=== PATIENT | female | born 1990 | race Caucasian/White ===

== ENCOUNTER → 2017-10-20 16:08 | Outpatient (CLI) | payer MEDICAID, SELFPAY ==
[2017-10-26 16:58] LABS: HPV Reflexed? NOT INDICATED
== END ==
PROVIDERS: Visit Provider Obstetrics & Gynecology
DX: Z12.72 Encounter for screening for malignant neoplasm of vagina (principal); Z12.4 Encounter for screening for malignant neoplasm of cervix
CPT/HCPCS: 88175; G0145

== ENCOUNTER → 2017-10-28 17:39 | Outpatient (CLI) | payer MEDICAID, SELFPAY ==
--- NOTE | 2017-10-28 | IMM_PTH ---
PATIENT: ESA EAVNGELISTA LOC: [facility] U#:[id number] AGE/SX: 34/F ROOM: RE10/28/[address]: Dr. Diogo Garcia MD : 1990 BED: DIS: SPEC #: [id number] RECD: 10/30/17 10:58 STATUS: UMA REQ #: [id number] GABRIELA: 10/28/17 00:[address]: Diogo Garcia DEPT: IMMUNOHISTOCHEMISTRY RECD BY: Lucero Blue ENTERED: 10/30/17 10:59 SP TYPE: IMMUNO OTHR DR: Dr. Omar Madrid DO Tissues: A - Uterine cervix, NOS B - Uterine cervix, NOS Procedures: p16 (initial) KI-67 (add) PHYSICIAN & INSTITUTION [place] [id number] SPECIMEN INFORMATION: Tissue Source: A ? Cervical biopsy 7 o?clock, B - Cervical biopsy 12 o?clock Clinical Info: TONYA Specimen Number: [id number] A & B CPT code: 51356 x2, 52225 x2 METHODOLOGY: Deparaffinized sections of prefer/formalin-fixed tissue or PAP/DQ stained slides are incubated with monoclonal/polyclonal antibodies/oligonucleotide probes. Localization is made via biotin free immunoperoxidase method. Appropriate controls are performed and reacted as expected. Results on target cell population are indicated in the following table: RESULTS: ANTIBODY / CLONE RESULT Block A P16 (E6H4) positive, focal and patchy Ki-67 (30-9) negative Block B P16 (E6H4) positive, focal and patchy Ki-67 (30-9) positive, low These tests were developed and their performance characteristics determined by [facility]. They may not have been cleared or approved by the U.S. Food and Drug Administration. The FDA has determined that such clearance or approval is not necessary. INTERPRETATION: A. Cervical biopsy 7 o?clock: Focal changes suspicious for HPV cytopathic effects. B. Cervical biopsy 12 o?clock: Focal changes consistent with HPV cytopathic effects. SJ:angelika 10/30/17
--- NOTE | 2017-10-28 | CER_PTH ---
PATIENT: ESA EVANGELISTA LOC: [facility] U#:[id number] AGE/SX: 34/F ROOM: RE10/28/[address]: Dr. Diogo Garcia MD : 1990 BED: DIS: SPEC #: [id number] RECD: 10/28/17 17:29 STATUS: UMA NESSA #: [id number] GABRIELA: 10/28/17 00:[address]: Diogo Garcia DEPT: SURGICAL PATHOLOGY RECD BY: Tu Gray ENTERED: 10/29/17 07:46 SP TYPE: CERV OTHR DR: Dr. Omar Madrid DO Tissues: A - Uterine cervix, NOS B - Uterine cervix, NOS C - Endocervical Procedures: Surgery Specimen Level IV HEADER OPERATION: Colposcopy with biopsy PRE-OP DIAGNOSIS: LGSIL TISSUE SUBMITTED: A ? Cervical biopsy 7 o?clock, B ? Cervical biopsy 12 o?clock, C - ECC MICROSCOPIC DIAGNOSIS A. Cervix, 7 o?clock, biopsy: Focal changes suspicious for HPV cytopathic effects. Chronic inflammation and squamous metaplasia. B. Cervix, 12 o?clock, biopsy: Focal changes consistent with HPV cytopathic effects. Chronic inflammation and squamous metaplasia. C. ECC: Fragments of benign endocervical epithelium and blood, negative for dysplasia. SJ:rg 10/30/17 COMMENT A & B. Immunohistochemistry ([id number]) for surrogate HPV marker (p16) supports the above diagnosis. MICROSCOPIC DESCRIPTION Slides are reviewed. GROSS DESCRIPTION A - Received in fixative is one container labeled with the patient's name and designated cervix biopsy 7 o'clock. The specimen consists of one irregular fragment of light julian soft tissue that measures 0.3 x 0.2 x 0.1 cm. The specimen is totally submitted in one cassette. B - Received in fixative is one container labeled with the patient's name and designated cervix biopsy 12 o'clock. The specimen consists of one irregular fragment of light julian soft tissue that measures 0.3 x 0.1 x 0.1 cm. The specimen is totally submitted in one cassette. C - Received in fixative is one container labeled with the patient's name and designated ECC. The specimen consists of multiple fragments of julian mucoid tissue that in aggregate measure 2 x 2 x 0.1 cm. The specimen is totally submitted in one cassette. / SJ:rg 10/29/17 TC:5 CPT: 56447 x3
== END ==
PROVIDERS: Family Provider Family Medicine; PCP Family Medicine; Visit Provider Obstetrics & Gynecology
DX: N87.9 Dysplasia of cervix uteri, unspecified (principal)
CPT/HCPCS: 88305; 88341; 88342

== ENCOUNTER 2017-12-09 05:51 | Day surgery (SDC) | payer MEDICAID, SELFPAY ==
[2017-12-08 06:20] LABS: Pregnancy, Serum, hCG Quali. NEGATIVE Negative (0-9 Nonpreg)
[2017-12-08 06:24] LABS: Hematocrit 37.4 % (37-47); Hemoglobin 12.2 g/dl (12.0-15.0); Mean Corp Hgb Conc 32.6 g/gl (32-36); Mean Corpuscular Hgb 27.4 pg (27.0-32.0); Mean Corpuscular Volume 83.9 fL (81-99); Mean Platelet Vol. 9.5 fl (6.2-12.0); Platelet Count 377 K/mm3 (150-450); RBC Distribution Width CV 13.7 % (11.6-14.6); RBC Distribution Width SD 41.8 fl (35.1-43.9); Red Blood Count 4.46 M/mm3 (4.2-5.4); Scan Indicated on CBC? Y/N NO; White Blood Count 8.6 K/mm3 (4.4-11.0)
[2017-12-08 06:25] LABS: Partial Thromboplast Time 31.1 Seconds (24.1-36.2); Prothrombin Time (Protime)PT. 13.1 SECONDS (11.7-14.9)
--- NOTE | 2017-12-09 | FALS_PTH ---
PATIENT: ESA EVANGELISTA LOC: [facility] [place] U#:[id number] AGE/SX: 27/F ROOM: RE12/09/[address]: Dr. Diogo Garcia MD : 1990 BED: DIS: 12/09/2017 SPEC #: [id number] RECD: 12/09/17 10:49 STATUS: UMA REQ #: [id number] GABRIELA: 12/09/17 00:[address]: Diogo Garcia DEPT: SURGICAL PATHOLOGY RECD BY: Gelacio Oneal ENTERED: 12/09/17 10:49 SP TYPE: FALL TUBES OTHR DR: Samara Nascimento, [place] Tissues: Fallopian tube Procedures: Surgery Specimen Level II HEADER OPERATION: Laparoscopic salpingectomy PRE-OP DIAGNOSIS: Sterilization request TISSUE SUBMITTED: Bilateral fallopian tubes MICROSCOPIC DIAGNOSIS Bilateral fallopian tubes, salpingectomy: Bilateral fallopian tubes including fimbrial ends, no pathologic diagnosis. SJ:angelika 12/10/17 MICROSCOPIC DESCRIPTION Slides are reviewed. GROSS DESCRIPTION Received in fixative is one container labeled with the patient's name and designated bilateral fallopian tubes. The specimen consists of bilateral fallopian tubes including fimbrial ends. The fallopian tubes are not identified as right or left. One fallopian tube measures 5.5 cm in length and 0.5 cm in diameter and the second fallopian tube measures 5.5 cm in length and 0.6 cm in diameter. Sections reveal unremarkable cut surfaces. Leveler Helper sections are submitted in two cassettes with each cassette containing one fallopian tube. / BINA:angelika 12/09/17 TC:4 CPT: 30736 x2
[2017-12-09 06:17] VITALS: BP 144/89; PULSE 70; RESP 16; TEMP 36.2; O2SAT 99; BMI 35.3
[2017-12-09 06:23] LABS: Internal QC Validated? YES +Cl - CLEAR BKGD; Pregnancy, Urine Negative Negative
--- NOTE | 2017-12-09 07:35 | DCINST_ITS ---
- Discharge Diagnoses Current Active Problems: s/p laparoscopic bilateral salpingectomy You will use the following diet at home:: No restrictions Your food should be the consistency of: Regular Discharge Activity: Return to Normal Activity, May Drive, May not drive while taking narcotic pain medications., May Shower Return to work on:: 12/16/17 May shower in (days): 0 May resume sexual activity in: 2 weeks Call your doctor if your incision/area has: Sudden Increased Bleeding, Increased Pain/ Swelling, Increased Redness, Foul Smelling Discharge, Swelling at the incision site Call your doctor if you observe: Fever of 101 or Higher, Inability to urinate, Inability to have a bowel movement, Using more than one pad per hour, Shortness of breath, Chest pain, Calf discomfort, Uncontrolled pain Remove Dressing in (days):: 1 Cleanse incision/area with: Soap & Water Allergies/Adverse Reactions: Allergies No Known Allergies Allergy (Verified 10/05/13 23:12) Medications to take at Discharge Albuterol Inhaler [Ventolin Hfa] 2 puff INHALATION Q4H PRN PRN 02/25/16 Yss526/FA/Omega3/Dha/Fish Oil [ Gummies] 2 tab.chew PO DAILY 02/25/16 Ibuprofen 600 mg PO 4X/DAY PRN #30 tab 12/09/17 Oxycodone [Oxyir] 5 - 10 mg PO Q4H PRN PRN 7 Days #20 tab 12/09/17 The following prescriptions were given: Oxycodone [Oxyir] 5 - 10 mg PO Q4H PRN PRN 7 Days #20 tab PRN Reason: Mod-Severe Pain (4-10/10) Ibuprofen 600 mg PO 4X/DAY PRN #30 tab PRN Reason: pain or cramping Primary Care Physician: Samara Nascimento, BLANKET CUTTING MACHINE OPERATOR-C [Primary Care Provider] - Please Follow Up With: Diogo Garcia MD When: one week Proposed Discharge Date: 12/09/17
--- NOTE | 2017-12-09 07:42 | OP.PCM_ITS ---
Report of Operation Date of Procedure: 12/09/17 Pre-Operative Diagnosis: Requests permanent sterilization Post-Operative Diagnosis: Same Surgery/Procedure Performed:: Laparoscopic bilateral salpingectomy Description of Surgical Findings:: Normal appearing uterus, ovaries and fallopian tubes. Minimal scarring present after two previous sections. Normal appearing liver. Gallbladder and appendix not visualized. machine filler servicer: Ann Marie Vigil Type of Anesthesia:: General Anesthesiologist: Patricio Cross Special Medications: none Specimen's removed: right and left fallopian tubes Drains: none Estimated Blood Loss (mL): minimal Fluids Replaced: 500cc LR Description of Procedure: Nikki reaffirmed her desire for permanent sterilization prior to the procedure. She was taken to the OR with IV running. She was given two grams of cefotetan intravenously prior to the procedure. She was prepped and draped in the dorsal lithotomy position. A red rubber catheter was used to drain the bladder. A uterine manipulator was then placed. Attention was then directed to the abdomen where a 5mm vertical incision was made in the lower base of the umbilicus. The underlying subcutaneous tissue was then dissected down to the level of fascia using blunt dissection with a Gema clamp. The abdominal wall was then elevated and a Veress needle was placed through the umbilical defect into the abdominal cavity. The abdomen was this inflated to 15 Torr using CO2 gas. The Veress needle was then removed and replaced with a 5 mm trocar and sleeve. The trocar was removed and replaced with the laparoscope. A thorough survey of the abdomen and pelvis was then performed with findings as above. Two lateral side ports were then placed one on the right and one on the left. These 5mm ports were placed slightly below the level of the umbilicus lateral to the inferior epigastric vessels. Hemostasis was excellent after port placement. Attention was first directed to the left fallopian tube which was grasped at the distal end and elevated. The mesosalpinx was then serially dissected with the ligasure device from the fimbriated end to the cornua of the uterus. The tube was then amputated and removed through the side port. In a similar fashion the right fallopian tube was dissected and removed. Hemostasis was excellent. The lateral port sites were then removed under direct visualization of the laparoscope. The gas was evacuated and the umbilical port was removed. The skin incision were closed with 4-0 Monocryl suture. The skin incision sites were then injected subcutaneously with 0.25% Marcaine. The uterine manipulator was removed. The patient was reversed from anesthesia and taken to the recovery room in stable condition. Grafts/Implants Used: none - Complications none - Admit VTE Documentation VTE Present on Admission: No VTE Mechan Device Prophylaxis: SCD's VTE Pharm Prophylaxis ordered?: No
[2017-12-09] MEDS: Bupivacaine 0.25% 30 ML Vial (08:01)
[2017-12-09 08:27] VITALS: BP 144/89; BP 145/96; PULSE 87; RESP 16; TEMP 36.2; O2SAT 100
[2017-12-09 08:32] VITALS: BP 139/93; BP 144/89; PULSE 89; RESP 17; O2SAT 99
[2017-12-09 08:46] VITALS: BP 117/73; BP 144/89; PULSE 71; RESP 16; O2SAT 98
[2017-12-09 08:57] VITALS: BP 128/76; BP 144/89; PULSE 79; RESP 16; TEMP 36.2; O2SAT 99
[2017-12-09 10:34] VITALS: BP 129/85; BP 144/89; PULSE 71; RESP 16; TEMP 35.9; O2SAT 100
== END 2017-12-09 10:36 | disposition home or self-care (01) ==
LOC: SDC 05:53 → AC 05:53
PROVIDERS: Family Provider Nurse Practitioner Family; PCP Nurse Practitioner Family; Visit Provider Obstetrics & Gynecology
PROC: (CPT 58661; principal; 2017-12-09 07:15)
DX: Z30.2 Encounter for sterilization (principal); J45.909 Unspecified asthma, uncomplicated; Z87.891 Personal history of nicotine dependence
CPT/HCPCS: 00840; 58661; 36415; 81025; 84703; 85027; 85610; 85730; 86850; 86900; 88302; J7120; J0330; J2405

== ENCOUNTER → 2018-07-29 15:08 | Outpatient (CLI) | payer MEDICAID, SELFPAY ==
[2018-07-29 17:37] LABS: Progesterone Level 0.57 ng/mL (See Comment)
[2018-07-29 17:38] LABS: Follicle Stimulating Hormone 5.2 mIU/mL; Free T3 2.6 pg/mL (2.18-3.98); Hemoglobin A1c 5.2 % (4.2-6.3); Luteinizing Hormone 8.7 mIU/mL; Prolactin 130.3 ng/mL; T4 Free Direct 0.75 ng/dL (0.76-1.46); Thyroid Stim Hormone (TSH) 0.85 uIU/mL (0.358-3.74)
[2018-07-29 17:43] LABS: Pregnancy, Serum, hCG Quali. NEGATIVE Negative (0-9 Nonpreg)
[2018-08-05 07:56] LABS: HPV HC, High Risk Negative (Negative)
[2018-08-05 08:01] LABS: HPV Reflexed? YES, CHARGE PATIENT
== END ==
PROVIDERS: Visit Provider Obstetrics & Gynecology
DX: N91.2 Amenorrhea, unspecified (principal); R87.612 Low grade squamous intraepithelial lesion on cytologic smear of cervix (LGSIL)
CPT/HCPCS: 36415; 83001; 83002; 83036; 84144; 84146; 84439; 84443; 84481; 84703; 87624; 88175; G0145

== ENCOUNTER → 2018-08-19 11:08 | Outpatient (CLI) | payer MEDICAID, SELFPAY ==
--- NOTE | 2018-08-19 11:22 | MRI_ITS ---
HISTORY: hyperprolactinemia, amenorrhea x 6mos Exam: MRI brain and pituitary without and with contrast TECHNIQUE: Multiplanar and multisequence MR images of the brain were obtained with and without IV gadolinium. IV Contrast dosage and agent: 10 cc Gadavist COMPARISON: None FINDINGS: The exam is of good quality. The pituitary gland is enlarged measuring 9-10 mm in height and slightly larger as the right of midline. The pituitary shows a convex upper border rather than expected concave border. The pituitary infundibulum shows no deviation. With contrast injection, the pituitary shows predominantly homogenous signal and enhancement. No discrete microadenoma is seen. Normal optic chiasm. No optic nerve compression. Normal ventricles. Normal manzanares-white matter differentiation. No white matter disease. No intracranial hemorrhage or significant mass-effect. Posterior fossa structures appear normal. Normal flow voids of the major vessels. No suspicious extra-axial fluid collection. The mastoids and paranasal sinuses appear clear. MRI/Brain W/WO Contrast IMPRESSION: 1. Pituitary gland enlargement, slightly greater to the right of midline but no discrete microadenoma identified. 2. Otherwise negative exam. No additional lesions. No optic nerve compression. at 0611 Reported and signed by: Glen Marx MD Electronically Signed: Glen Marx, at 6:10 EST Tel , Service support ,
== END ==
PROVIDERS: Family Provider Nurse Practitioner Family; PCP Nurse Practitioner Family; Referring Provider Obstetrics & Gynecology; Visit Provider Obstetrics & Gynecology
DX: E22.1 Hyperprolactinemia (principal)
CPT/HCPCS: 70553; A9585

== ENCOUNTER → 2018-09-09 14:09 | Outpatient (CLI) | payer MEDICAID, SELFPAY ==
[2018-09-09 16:38] LABS: Progesterone Level 0.35 ng/mL (See Comment)
[2018-09-09 17:32] LABS: hCG Titer Quant., Serum < 1 mIU/mL (<9 non-preg)
== END ==
PROVIDERS: Visit Provider Obstetrics & Gynecology
DX: Z30.014 Encounter for initial prescription of intrauterine contraceptive device (principal)
CPT/HCPCS: 36415; 84144; 84702

== ENCOUNTER → 2019-03-07 12:25 | Outpatient (CLI) | payer MEDICAID, SELFPAY ==
[2019-03-07 13:20] LABS: Prolactin 51.7 ng/mL
== END ==
PROVIDERS: Family Provider Family Medicine; PCP Family Medicine; Referring Provider Obstetrics & Gynecology; Visit Provider Obstetrics & Gynecology
DX: E22.1 Hyperprolactinemia (principal); Z12.4 Encounter for screening for malignant neoplasm of cervix
CPT/HCPCS: 36415; 84146

== ENCOUNTER 2019-11-05 18:59 | Emergency (ER) | payer MEDICAID, SELFPAY ==
[2019-11-05 19:01] VITALS: BP 148/78; PULSE 114; RESP 16; TEMP 36.2; O2SAT 97; BMI 36.6
--- NOTE | 2019-11-05 19:21 | ED.VIS.GEN ---
History of Present Illness Chief Complaint: General Illness Informant: Patient Onset: Month(s) Context: Sudden Onset Timing: Intermittent Quality: Shortness of breath, perioral tingling and tingling all extremities Location: Previously documented Current Severity: Moderate Maximum Severity: Severe Worsened by: Unknown Relieved by: Nothing Associated Symptoms: Binocular blurred vision Narrative: Patient is a 29-year-old female who presents with perioral numbness and numbness of all extremities and especially her hands and feet. She was told if this were to develop she should go to the emergency department. She does have history of depression anxiety. She does report blurred vision that is by ocular. She denies headache. She denies trouble with speech or swallowing. She denies chest pain. She does report shortness of breath. She denies nausea, vomiting or diarrhea. Prior similar symptoms: Yes Recent Illness/Hospitalization: No - Past Medical History (1) History of depression and anxiety Status: Acute Past Medical History - Allergies and Home Meds Allergies/Adverse Reactions: Allergies No Known Allergies Allergy (Verified 10/05/13 23:12) Primary Care Physician: Omar Madrid DO [Primary Care Provider] - Prior records reviewed: Yes - Depression and anxiety Surgical History: noncontributory Lives: [facility] Smoking Status: Former smoker Alcohol: None Drugs: None Review of Systems General: Reports: Malaise. Denies: Chills, Fever, Subjective, Sweats, Weight loss Eyes: Reports: Blurred Vision - bilaterally. Denies: Visual changes - bilaterally, Diplopia ENT: Reports: - - Denies ringing of her ears or decreased hearing.. Denies: Bilateral ear pain, Rhinorrhea Cardiovascular: Reports: Heart racing. Denies: Chest pain, Palpitations Respiratory: Reports: Dyspnea. Denies: Cough, Sputum, Dyspnea on exertion, Orthopnea, Paroxysmal nocturnal dyspnea Gastrointestinal: Reports: Nausea. Denies: Abdominal pain, Vomiting, Diarrhea, Constipation, Melena, Hematochezia, -, - Genitourinary: Denies: Dysuria, Hematuria, Frequency Musculoskeletal: Denies: Myalgias, Arthralgias, Neck pain, Back pain, Swelling, Extremity Pain, -, - Skin: Denies: Rash, Wounds Neurological: Reports: Parasthesia, Numbness. Denies: Headache, Weakness Psych: Reports: Depression Endocrine: Denies: Polyuria, Polydipsia Hematologic: Denies: Easy bruising, Easy bleeding Allergy: Denies: Uticaria Physical Exam Vital Signs/Narrative: Vital Signs Temp Pulse Resp BP Pulse Ox 11/05/19 19:01 97.1 F L 114 H 16 148/78 H 97 Inital Vital Signs reviewed: Yes General: Well nourished, Well developed, Obese, No Acute Distress, - - Eye contact was minimal. Patient had fluttering of her eyelashes when she closed her eyes. Head: Normocephalic, Atraumatic Eyes: Perrl, EOMI, - - There is no nystagmus.. Negative for: Pale conjunctiva, Scleral icterus ENT: Moist mucous membranes, No rhinorrhea, TM's clear, - - Bilateral Chvostek sign noted Neck: Supple, Nontender, No lymphadenopathy, No JVD Cardiovascular: Regular rhythm, No murmurs, Normal S1, Normal S2, Tachycardia Respiratory: No distress, CTA bilaterally, Chest nontender Abdomen: Soft, Nontender, Nondistended, Normal bowel sounds, No masses Rectal: Deferred Back: Nontender, Normal Inspection Extremities: No edema, Tenderness - Tenderness to palpation out of proportion to light touch in all extremities. Negative for: Nontender Skin: Normal color, No rash, No Trauma. Negative for: Cyanosis, Diaphoresis, Jaundice Neurological: Alert, Oriented x3, Cranial nerves II-XII grossly intact, Normal Strength, Normal Sensation, Normal DTR - Hyperreflexia with no clonus or Babinski sign, Normal Gait Psychological: Depressed Diagnostic/Tx/Re-eval Laboratory Results 11/05/19 11/05/19 19:38 19:38 WBC 12.2 H RBC 4.67 Hgb 12.6 Hct 39.1 MCV 83.7 MCH 27.0 MCHC 32.2 RDW Std Deviation 41.5 RDW Coeff of Alphonse 13.5 Plt Count 474 H MPV 11.0 Immature Gran % (Auto) 0.200 Neut % (Auto) 51.3 Lymph % (Auto) 38.5 Mccormick % (Auto) 6.7 Eos % (Auto) 2.8 Baso % (Auto) 0.5 Absolute Neuts (auto) 6.2 Absolute Lymphs (auto) 4.69 H Nucleated RBC % 0 Sodium 143 Potassium 3.3 L Chloride 111 H Carbon Dioxide 24.0 Anion Gap 8 BUN 7 Creatinine 0.72 Estim Creat Clear Calc 103.74 Est GFR (MDRD) Af Amer 124 Est GFR (MDRD) Non-Af 103 BUN/Creatinine Ratio 9.8 L Glucose 89 Calcium 9.3 ABG reveals a respiratory alkalosis. pH is 7.55, PCO2 25, PaO2 119, base excess 0 and bicarb of 22.0 with a saturation of 99% on room air. She has mild hypokalemia, 3.3. - Medical Decision Making Patient symptoms are suggestive of hyperventilation syndrome. Since she reports drinking a lot of water will obtain basic metabolic panel to evaluate for hyponatremia. Will obtain CBC to assess H&H to rule out anemia. Patient was informed that her findings are consistent with hyperventilation syndrome. She needs to follow-up with her doctor to determine why she is hyperventilating. Suspect and affect of disorder as the cause. ED Disposition - Plan for ED Patient: Disposition: Home or Assisted Living Diagnosis: Acute hyperventilation syndrome Instructions: ED Hyperventilation Syndrome Referrals: Omar Madrid DO [Primary Care Provider] - 3-5 Days Additional Instructions: You need to contact your doctor in follow-up and determine why you are hyperventilating.
[2019-11-05 19:44] VITALS: BP 125/91; PULSE 94; RESP 17; O2SAT 99
[2019-11-05 19:57] LABS: Absolute Lymphocyte Count 4.69 X10^3/uL (0.83-4.51); Absolute Neutrophil Count 6.2 X10^3/uL (2.0-7.7); Basophil# 0.06 X10^3/uL; Basophil% 0.5 % (0-1); Eosinophil# 0.34 X10^3/uL; Eosinophils% 2.8 % (0-5); Hematocrit 39.1 % (37-47); Hemoglobin 12.6 g/dL (12.0-15.0); Lymphocyte # 4.69 X10^3/ul (4.0); Lymphocyte % 38.5 % (19-41); Mean Corp Hgb Conc 32.2 g/dL (32-36); Mean Corpuscular Volume 83.7 fL (81-99); Monocyte# 0.82 X10^3/uL; Monocyte% 6.7 % (0-10); NRBC Flagged by Analyzer 0 % (0-5); Neutrophil # 6.23 X10^3/uL (2.7-7.7); Neutrophil % 51.3 % (47-70); Platelet Count 474 K/mm3 (150-450); RBC Distribution Width CV 13.5 % (11.6-14.6); RBC Distribution Width SD 41.5 fl (35.1-43.9); Red Blood Count 4.67 M/mm3 (4.2-5.4); White Blood Count 12.2 K/mm3 (4.4-11.0)
[2019-11-05 20:03] LABS: Anion Gap 8 (5-15); BUN 7 mg/dL (7-18); BUN/Creat Ratio 9.8 RATIO (10-20); Calcium,Total 9.3 mg/dL (8.5-10.1); Chloride 111 mmol/L (98-107); Creatinine, Serum 0.72 mg/dL (0.55-1.02); EST Glomerular Filtration Rate 103 mL/min (>60); Est Glom Filt Rate - Afr Amer 124 mL/min (>60); Estimated Creatinine Clearance 103.74 ml/min; Glucose 89 mg/dL (74-106); Potassium 3.3 mmol/L (3.5-5.1); Sodium Level 143 mmol/L (136-145)
[2019-11-05 20:15] VITALS: BP 117/105; PULSE 86; RESP 21; O2SAT 98
[2019-11-05 20:30] VITALS: BP 131/89; PULSE 79; RESP 20; O2SAT 100
[2019-11-06 02:22] LABS: Allen Test POS; Blood Gas Specimen Type ART; O2 Delivery Device Room Air; SITE L RADIAL
[2019-11-06 02:23] LABS: Base Excess 0 mmol/L (-2 to +2); PO2 119 mmHG (75-100); SO2 99 % (95-99); Time Given 2012; Total Carbon Dioxide 23 mmol/L; pCO2 25.3 mmHg (35-45); pH 7.55 (7.35-7.45)
== END 2019-11-05 20:43 | disposition home or self-care (01) ==
PROVIDERS: Emergency Provider Emergency Medicine; PCP Family Medicine
DX: F45.8 Other somatoform disorders (principal); Z87.891 Personal history of nicotine dependence
CPT/HCPCS: 36600; 80048; 82803; 85025; 99284; A4216